=== PATIENT | male | born 1980 | race Caucasian/White ===

== ENCOUNTER 2017-12-03 21:01 | Emergency (ER) | payer OTHER ==
[2017-12-03] MEDS: FLUORESCEIN OPHTH 1 MG STRIP OD (22:30)
[2017-12-03] MEDS: TETRACAINE 0.5% OPHTH SOLN 4ML OD (22:30)
== END 2017-12-03 23:22 | disposition home or self-care (01) ==
LOC: M ED 21:01
DX: S05.91XA Unspecified injury of right eye and orbit, initial encounter (principal); H40.059 Ocular hypertension, unspecified eye; W21.02XA Struck by soccer ball, initial encounter; Y92.9 Unspecified place or not applicable; Y93.9 Activity, unspecified
CPT/HCPCS: 99283

== ENCOUNTER → 2019-03-10 | Outpatient (CLI) | payer SELFPAY ==
[2019-03-10 14:11] LABS: RUBELLA IgG QUALITATIVE IMMUNE (IMMUNE)
[2019-03-11 14:15] LABS: RUBEOLA IgG ANTIBODY 27.1 AU/mL (Immune >29.9)
== END ==
LOC: M SMT 08:13
PROVIDERS: ATTEND Family Medicine
DX: Z01.84 Encounter for antibody response examination (principal)